=== PATIENT | female | born 1990 | race Caucasian/White ===

== ENCOUNTER 2023-06-29 05:40 | Inpatient (IN) ==
--- NOTE | 2023-06-22 09:16 | Anesthesiology Consultation ---
Date of Service June 22, 2023 Assessment & Plan (1) Encounter for pre-operative examination: Infectious disease screening: Per assessment on 06/22/23: No known infectious disease contacts or current infectious disease symptoms. No noted recent Covid positive test result. Chart Review Chart Review: ice rink attendant initiated History Surgery Operation Date: 06/29/23 07:30 Proposed Procedures p Section in LD (Delivery of Baby through Abdominal Incision) - Vernell Hope MD, FACOG s With Bilateral Tubal Ligation - Vernell Hope MD, FACOG Height/Weight Height: 5 ft 7 in Weight: 119.748 kg Allergies Allergy/AdvReac Type Severity Reaction Status Date / Time amoxicillin Allergy Mild Rash Verified 06/22/23 08:39 morphine Allergy Mild rash Verified 06/22/23 08:39 Influenza Virus Vaccines AdvReac Mild Gastrointestinal Verified 06/22/23 08:39 Upset Medications Home Medications Medication Instructions Recorded Confirmed Last Taken prenat.vits,gerry,[id number] 1 tab PO QPM 11/15/22 06/22/23 Unknown acetone (urine) test (Ketone Urine #50 ea 02/16/23 06/21/23 Unknown Test strips) blood sugar diagnostic (OneTouch #150 ea 02/16/23 06/21/23 Unknown Verio test strips) blood-glucose meter (OneTouch #1 ea 02/16/23 06/22/23 Unknown Verio Reflect Meter) lancets 33 gauge (OneTouch Delica #150 ea 02/16/23 06/22/23 Unknown Plus Lancet) pen needle, diabetic 32 gauge x #50 ea 03/30/23 06/22/23 Unknown /32" (BD Ultra-Fine Evelyn Pen Needle) hydrocortisone 2.5 % topical cream 1 applic NC BID PRN hemorrhoids 05/24/23 06/22/23 Unknown with perineal applicator #30 grams (Anusol-HC) aspirin 81 mg capsule 81 mg PO QAM 06/22/23 06/22/23 Unknown insulin NPH isoph U-100 human 100 16 unit subcut QPM 06/22/23 06/22/23 Unknown unit/mL (3 mL) subcutaneous pen (Humulin N NPH U-100 Insulin KwikPen) magnesium carb,citrate,oxide 300 mg PO QPM 06/22/23 06/22/23 Unknown (Magnesium Complex) Past Medical History Medical History Asthma exercise-induced at age 12, no inhaler since age 18 Constipation Depression with anxiety History of ovarian cyst History of pre-eclampsia reason for aspirin daily per patient Insulin controlled gestational diabetes mellitus (GDM) during Past Family History Family History Mother Breast cancer, Onset Age: 43 did not complete genetic testing Family history of reaction to anesthesia nausea/vomiting and difficulty waking Grandfather (Maternal) Colorectal cancer, Onset Age: 71 Grandmother (Maternal) Diabetes Denies family history of Ovarian cancer Past Surgical History Surgical History H/O hand surgery left tendon repair to pinky/ring finger History of tooth extraction History of wisdom tooth extraction Nausea and vomiting after administration of anesthetic agent S/P section S/P dilation and curettage x2 Social History Smoking Status: Never smoker Do You Dip or Chew Tobacco: No Hx Alcohol Use: No Hx Substance Use: No substance use type: does not use
--- NOTE | 2023-06-28 09:52 | History & Physical Report ---
Date of Service June 28, 2023 Assessment & Plan (1) 39 weeks gestation of : (2) Insulin controlled gestational diabetes mellitus (GDM) during : (3) Previous delivery affecting , antepartum: (4) Need for MMR vaccine: Plan admit in am for planned repeat c/s and tubal, with planned distal salpingectomies after discussion with pt of her options. Risks, complications and alternatives reviewed. Risks, alternatives and complications of procedure reviewed with patient and include but are not limited to injury to and maternal structures bleeding, infection, anesthesia, injury to bowel, bladder, vessels, nerves, ureters, delayed complication, failure of tubal ligation procedure with resultant , ectopic which can be medical emergency and regret for doing the tubal ligation. Patient desires to proceed and consent signed. She is aware of preop and postop instructions and course. Plan to take 1/2 nph dose at bedtime tonight and be npo after midnight. Of note can stop asa now. Also has taken cephalosporins in past without issue so plan Kefzol OCTOR tomorrow. History of Present Illness Chief Complaint: planned repeat c/s and desires tubal Primary Care Provider: Byron Sanchez MD 32yo at 39+wks ega presents to L&D in am tomorrow for planned repeat c/s and desires sterilization. Today pt denies rom or vb or ctx. Feels fm but baby is slowing. She had normal reactive nst today. She is taking 16u NPH at bedtime to control bsgs. Her last efw of baby was at 36wks and was 71%. PNC c/b 1. obesity 2. gdm on insulin 3. mmr equiv, plan mmr pp 4. prior preg c/b preeclampsia, has been taking baby asa 5. prior c/s, desires repeat c/s and tubal PNL rhpos, r equiv, gbs neg. OBH: c/s at term, preeclampsia GYNH: nl paps, no stds. Allergies Allergy/AdvReac Type Severity Reaction Status Date / Time amoxicillin Allergy Mild Rash Verified 06/28/23 08:19 morphine Allergy Mild rash Verified 06/28/23 08:19 Influenza Virus Vaccines AdvReac Mild Gastrointestinal Verified 06/28/23 08:19 Upset Home Medications Medication Instructions Recorded Confirmed Type prenat.vits,gerry,[id number] 1 tab PO QPM 11/15/22 06/28/23 History acetone (urine) test (Ketone Urine #50 ea 02/16/23 06/28/23 Rx Test strips) blood sugar diagnostic (OneTouch #150 ea 02/16/23 06/28/23 Rx Verio test strips) blood-glucose meter (OneTouch #1 ea 02/16/23 06/28/23 Rx Verio Reflect Meter) lancets 33 gauge (OneTouch Delica #150 ea 02/16/23 06/28/23 Rx Plus Lancet) pen needle, diabetic 32 gauge x #50 ea 03/30/23 06/28/23 Rx 5/32" (BD Ultra-Fine Evelyn Pen Needle) hydrocortisone 2.5 % topical cream 1 applic DE BID PRN hemorrhoids 05/24/23 06/28/23 Rx with perineal applicator #30 grams (Anusol-HC) aspirin 81 mg capsule 81 mg PO QAM 06/22/23 06/28/23 History insulin NPH isoph U-100 human 100 16 unit subcut QPM 06/22/23 06/28/23 History unit/mL (3 mL) subcutaneous pen (Humulin N NPH U-100 Insulin KwikPen) magnesium carb,citrate,oxide 300 mg PO QPM 06/22/23 06/28/23 History (Magnesium Complex) Patient History Medical History Asthma exercise-induced at age 12, no inhaler since age 18 Constipation Depression with anxiety History of ovarian cyst History of pre-eclampsia reason for aspirin daily per patient Insulin controlled gestational diabetes mellitus (GDM) during Surgical History H/O hand surgery left tendon repair to pinky/ring finger History of tooth extraction History of wisdom tooth extraction Nausea and vomiting after administration of anesthetic agent S/P section S/P dilation and curettage x2 Family History Mother Breast cancer, Onset Age: 43 did not complete genetic testing Family history of reaction to anesthesia nausea/vomiting and difficulty waking Grandfather (Maternal) Colorectal cancer, Onset Age: 71 Grandmother (Maternal) Diabetes Denies family history of Ovarian cancer Social History (Updated 11/15/22 @ 09:59 by Nelia Cope) Smoking Status: Never smoker Second Hand Exposure: Yes (father smoked growing up); Do You Dip or Chew Tobacco: No; Hx Alcohol Use: No Hx Substance Use: No Preferred Language: French Communication Ability: Effective Voice Over Artist Required: No Beliefs That Will Affect Care: None marital status: marital status details: Ambrose Landry (30) [phone] Current Living Situation: Spouse and Family Current Living Situation Comment: lives with spouse, daughter current occupational status: employed 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 Feels Safe at Home: Yes Assistive Devices: Glasses Review of Systems as per Subjective / HPI Physical Exam Constitutional: WD/WN, vitals as above Respiratory: normal respiratory effort, lungs clear to auscultation Cardiovascular: Rate/Rhythm: regular rate and regular rhythm Gastrointestinal (Abdomen): soft gravid nt nst reactive Musculoskeletal: tr edema Neurologic: grossly normal Psychiatric: A+Ox3, euthymic affect Coding Level of Care Code None Diagnoses 39 weeks gestation of Z3A.39 Insulin controlled gestational diabetes mellitus (GDM) during O24.414 Previous delivery affecting , antepartum O34.219 Need for MMR vaccine Z23
[2023-06-29] MEDS ORDERED: ceFAZolin 3,000 MG in DEXTROSE 5% 50 ML IV SCH (06:00)
[2023-06-29] MEDS ORDERED: CITRIC ACID/SODIUM CITRATE 15 ML UDC PO SCH (06:00)
[2023-06-29] MEDS ORDERED: LACTATED RINGER'S 1,000 ML IV SCH ×2 (06:00→10:23)
[2023-06-29 06:39] LABS: Basophils # (auto) 0.05 K/uL (0.00-0.20); Basophils % (auto) 0.4 %; Eosinophils # (auto) 0.23 K/uL (0.00-0.50); Hematocrit (blood only) 38.4 % (37.0-47.0); Hemoglobin 12.8 g/dl (12.0-16.0); Immature Granulocytes # (auto) 0.07 K/uL (0.01-0.20); Immature Granulocytes % (auto) 0.6 %; Lymphocytes # (auto) 1.84 K/uL (1.20-3.40); Lymphocytes % (auto) 16.1 %; Mean Corpuscular Hemoglobin 26.8 pg (25.0-34.0); Mean Corpuscular Hgb Conc 33.3 g/dL (32.0-36.0); Mean Corpuscular Volume 80.5 fL (80.0-100.0); Mean Platelet Volume 10.9 fL (9.4-12.4); Monocytes # (auto) 0.65 K/uL (0.11-0.59); Monocytes % (auto) 5.7 %; Neutrophils # (auto) 8.59 K/uL (1.40-6.50); Neutrophils % (auto) 75.2 %; Platelet Count 189 K/uL (130-400); RDW Coefficient of Variation 14.4 % (11.5-14.5); RDW Standard Deviation 41.5 fL (36.4-46.3); Red Blood Count 4.77 M/uL (4.20-5.40); White Blood Count 11.43 K/ul (4.8-10.8)
[2023-06-29] MEDS ORDERED: PHENYLEPHRINE HCL 10 MG/ML VIAL ONE (07:01)
[2023-06-29] MEDS ORDERED: OXYTOCIN 10 UNITS/ML VIAL ONE (07:01)
[2023-06-29] MEDS ORDERED: MoRPHine SULFATE PF 1 MG/ML 10 ML AMP/VIAL ONE (07:01)
[2023-06-29] MEDS ORDERED: fentaNYL citrate PF 100 MCG/2 ML VIAL ONE (07:02)
[2023-06-29] MEDS ORDERED: NALOXONE HCL 0.4 MG/1 ML VIAL/CARP IV PRN (07:17)
[2023-06-29] MEDS ORDERED: MoRPHine SULFATE PF 1 MG/ML 10 ML AMP/VIAL INT SPINAL ONE (07:17)
[2023-06-29] MEDS ORDERED: HYDROmorphone INJ 0.5 MG/0.5 ML SYR IV PRN (07:17)
[2023-06-29] MEDS ORDERED: ePHEDrine sulfate 50 MG/ML AMP IV PRN (07:17)
[2023-06-29] MEDS ORDERED: NALOXONE HCL 1 MG in SODIUM CHLORIDE 0.9% 1,000 ML IV PRN (07:17)
[2023-06-29] MEDS ORDERED: NALOXONE HCL 0.08 MG in SYRINGE 1.8 ML IV PRN (07:17)
[2023-06-29] MEDS ORDERED: LACTATED RINGER'S 500 ML IV PRN (07:17)
[2023-06-29] MEDS ORDERED: NALBUPHINE HCL 5 MG in SYRINGE 0 ML IV PRN (07:17)
[2023-06-29] MEDS ORDERED: ONDANSETRON INJ 2 MG/ML 2 ML VIAL IV PRN (07:17)
[2023-06-29] MEDS ORDERED: diphenhydrAMINE 50 MG/ML VIAL IV PRN (07:17)
--- NOTE | 2023-06-29 07:22 | History & Physical Bridge Note ---
Date of Service June 29, 2023 History & Physical Bridge Note I have examined the patient, reviewed the History & Physical and in the interval since the performance of the History & Physical I have noted the following changes of clinical significance: no changes noted
[2023-06-29] MEDS ORDERED: SODIUM CHLORIDE 0.9% 1,000 ML IV SCH (07:30)
[2023-06-29] MEDS ORDERED: DC INTRASPINAL MORPHINE SCH (07:30)
[2023-06-29] MEDS ORDERED: NO NARCOTICS OR SEDATIVES SCH (07:30)
--- NOTE | 2023-06-29 09:35 | Operative Report ---
PG Post Operative Report Pre & Post Diagnosis Operation Date: 06/29/23 07:30 <No data on this case meets the specified criteria> 1. 39+wks ega 2. Prior section, desires repeat section 3. Desires sterilization 4. GDM on insulin. I identified the patient and participated in the time-out.: Yes Procedure Operation Date: 06/29/23 07:30 <No data on this case meets the specified criteria> Repeat Low Transverse Section Bilateral Tubal Ligation via distal salpingectomies Surgeon Vernell Hope MD, FACOG Pump And Still Operator RN Estimated Blood Loss 600 Findings Consistent with Post-Op Diagnosis (viable male , apgars pending. normal bilateral ovaries and fallopian tubes. ) Fluids 700 Specimens bilateral fallopian tubes. cord blood. Drains joseph Anesthesia Type Spinal Complications none Disposition Accompanied Patient To Recovery: No Disposition: L&D Indications 32yo at 39+wks for planned repeat c/s and desires tubal ligation. Description of Procedure The patient was taken to the operating room and identified. After adequate anesthesia was obtained, she was placed in the supine position with a leftward tilt on the operating table and prepped and draped in the usual sterile fashion. A joseph catheter had already been placed. The knife was used to create a Pfannensteil skin incision that was carried down to the underlying layer of fascia. The fascia was nicked in the midline and this opening was extended laterally using Rosas scissors. Cachorro clamps were placed on the superior and inferior aspect of the fascial incision tenting it upward and the underlying rectus muscles were dissected off the overlying fascia both sharply and bluntly using Rosas scissors. The rectus muscles were bluntly in the midline. The peritoneal cavity was bluntly entered into. This opening was stretched. The bladder blade was placed. The vesicouterine peritoneum was elevated and opened up into and the bladder flap was created digitally and bladder blade was replaced. The knife was used to create a hysterotomy and this opening was stretched. The operators hand was placed through the hysterotomy and the bladder blade was removed. The head was elevated and flexed and with fundal pressure the head was delivered. The shoulders and body were rapidly delivered. The cord was clamped and cut and the 's mouth and nares were bulb suction. The was handed off to the awaiting pediatricians. Cord blood was obtained. The placenta was manually expressed. The uterus was exteriorized and cleared of all clots and debris. Dilute IV Pitocin was begun. The uterine tone was improving. The hysterotomy was closed in a running interlocking fashion using 0 Vicryl followed by a second figure of eight suture at the left angle for excellent hemostasis. Attention was then turned to bilateral fallopian tubes, each carried out to fimbriated ends, elevated with gaurav clamps and transected from fimbriae to cornua using the ligasure . The hysterotomy was hemostatic. The pelvis was suctioned. The uterus was returned to the abdomen. The gutters were cleared of all clots and debris. The hysterotomy was reinspected and noted to be hemostatic as were the tubal sites. The fascia was then closed in running fashion using 0 Vicryl. The subcutaneous fat was copiously irrigated and reapproximated using 2-0 chromic. The skin was closed in a subcuticular fashion using 4-0 monocryl. At this point the procedure was terminated. The patient was transferred to the recovery room in stable condition. All sponge, lap and needle counts are correct x2. I attest to the content of the Intraoperative Record and any orders documented therein. Any exceptions are noted below. OB Procedure Charges 02595 [id number] Add on Tubal for C/S
[2023-06-29] MEDS ORDERED: MEASLES, MUMPS & RUBELLA VIRUS VACCINE (MMR) VIAL SQ ONE (10:09)
[2023-06-29] MEDS ORDERED: MAGNESIUM HYDROXIDE SUSP 30 ML UDC PO PRN (10:23)
[2023-06-29] MEDS ORDERED: DIPHTHER/TETAN/PERTUS Vaccine (Tdap, Adol/Adult) 0.5mL IM ONE (10:23)
[2023-06-29] MEDS ORDERED: HYDROCORTISONE ACETATE 25 MG SUPP PR PRN (10:23)
[2023-06-29] MEDS ORDERED: SENNA 8.6 MG TAB PO PRN (10:23)
[2023-06-29] MEDS ORDERED: IBUPROFEN 600 MG TAB PO PRN (10:23)
[2023-06-29] MEDS ORDERED: BENZOCAINE 20% SPRY 85 APPLN/85 GM CAN EXT PRN (10:23)
--- NOTE | 2023-06-29 10:41 | Anesthesiology Progress Note ---
Date of Service June 29, 2023 Anesthesia Post Procedure Vital Signs Vital Signs: Temp Pulse Resp BP Pulse Ox 06/29/23 10:38 81 98 06/29/23 10:33 78 95 06/29/23 10:31 79 96/53 L 06/29/23 10:28 74 96 06/29/23 10:23 72 97 06/29/23 10:21 20 06/29/23 10:21 77 105/53 L 06/29/23 10:18 83 97 06/29/23 10:13 82 96 06/29/23 10:11 18 06/29/23 10:11 70 113/56 L 06/29/23 10:08 73 99 06/29/23 10:03 84 99 06/29/23 10:01 16 06/29/23 10:01 75 114/55 L 06/29/23 09:58 79 99 06/29/23 09:53 73 100 06/29/23 09:51 16 06/29/23 09:51 73 105/59 L 06/29/23 09:48 72 98 06/29/23 09:43 74 99 06/29/23 09:40 36.8 C 20 06/29/23 09:39 71 105/58 L 06/29/23 09:38 72 98 06/29/23 07:02 86 121/57 L 06/29/23 07:00 20 06/29/23 07:00 20 06/29/23 06:05 102 H 112/60 06/29/23 06:03 36.6 C 18 Transfer of Care Handoff Completed per policy Notes Mental Status: alert / awake / arousable and participated in evaluation Patient Amnestic to Procedure: Yes Nausea / Vomiting: adequately controlled Pain: adequately controlled Airway Patency, RR, SpO2: stable & adequate BP & HR: stable & adequate Hydration State: stable & adequate Neuraxial Anesthesia: was administered and sensory block is resolving Anesthetic Complications: no major complications apparent and Pt Satisfied with anesthetic care
[2023-06-29] MEDS: KETOROLAC 30 MG/ML VIAL IV PRN ×3 (11:06→22:50)
[2023-06-29] MEDS: OXYTOCIN 20 UNITS/LR 1,002 ML IV SCH ×2 (11:06→19:38)
[2023-06-29] MEDS: SIMETHICONE 80 MG CHEW PO SCH ×3 (16:13→19:41)
[2023-06-29] MEDS ORDERED: DOCUSATE SODIUM 100 MG CAP PO ONE (19:37)
[2023-06-29] MEDS: MAGNESIUM OXIDE 400 MG TAB PO SCH (19:41)
[2023-06-29] MEDS: DOCUSATE SODIUM 100 MG CAP PO SCH (19:41)
[2023-06-30] MEDS ORDERED: ONDANSETRON INJ 2 MG/ML 2 ML VIAL IV PRN (01:18)
[2023-06-30] MEDS ORDERED: diphenhydrAMINE Capsule 25 MG CAP PO PRN (01:18)
[2023-06-30] MEDS ORDERED: PROMETHAZINE HCL 25 MG in SODIUM CHLORIDE 0.9% 50 ML IV PRN (01:18)
[2023-06-30] MEDS ORDERED: diphenhydrAMINE 50 MG/ML VIAL IV PRN (01:18)
[2023-06-30] MEDS ORDERED: KETOROLAC 30 MG/ML VIAL IV PRN (01:18)
[2023-06-30] MEDS ORDERED: oxyCODONE/ACETAMINOPHEN 5mg/325mg TAB PO PRN (01:18)
[2023-06-30] MEDS ORDERED: ZOLPIDEM TARTRATE 5 MG TAB PO PRN (01:18)
--- NOTE | 2023-06-30 06:10 | Obstetrical Progress Note ---
Date of Service <Marthaanup Fleming DO - Last Filed: 06/30/23 06:11> June 30, 2023 Assessment & Plan <Martha Fleming DO - Last Filed: 06/30/23 06:11> (1) care following delivery: (2) Insulin controlled gestational diabetes mellitus (GDM) during : Plan Feels well today. Eating well, voiding well, ambulating well. Pain well controlled with prn pain meds. Routine care; OOB, ambulation, diet progression as tolerated. Anticipate discharge 48-72 hours after delivery, hopefully tomorrow am. After discharge will have 6 week follow-up with Dr. Hope. <Sandra Gaffney MD - Last Filed: 06/30/23 07:44> (1) care following delivery: (2) Insulin controlled gestational diabetes mellitus (GDM) during : Subjective <Martha Fleming DO - Last Filed: 06/30/23 06:11> Pt is a 32 y/o female who is POD#1 following repeat delivery at 39 weeks. complicated by GDM, obesity. Pt states that she is feeling fine this morning. No questions or complaints at this time. She states that she has been up since the delivery, has tolerated oral intake without issue, and has been voiding and passing gas. She is breast feeding and it has been going well so far. She does note that she is a bit more tender today than yesterday but pain is still controlled with prn meds. She is hoping to go home tomorrow. Lochia is persistent but improved. Constitutional: no fever, no chills or no sweats Respiratory: no dyspnea Cardiovascular: no chest pain or no palpitations Breast: no breast pain Genitourinary (female): no dysuria Neurologic: no headache(s) no changes in vision, no headaches Physical Exam <Martha Fleming DO - Last Filed: 06/30/23 06:11> General: Alert, oriented. No acute distress. Cardiac: Regular rate and rhythm, no murmurs, rubs, or gallops. Respiratory: Clear to auscultation bilaterally, no wheezes/rales/rhonchi. No increased work of breathing. Symmetrical chest rise. No respiratory distress. Abdomen: Soft, nontender, nondistended. Bowel sounds present. Uterus: Uterine fundus firm, palpable below the umbilicus. Surgical scar clean and healing well. No drainage. Lower extremities: No lower extremity edema or swelling. No deep calf pain. Results & Data <Martha Fleming DO - Last Filed: 06/30/23 06:11> Vital Signs (Past 12 Hours) Vital Signs Temp Pulse Resp BP Pulse Ox O2 Del Method 06/30/23 03:13 36.6 C 78 18 110/59 L 96 Room Air 06/30/23 01:00 18 95 06/30/23 00:00 18 95 06/29/23 23:40 18 95 06/29/23 22:55 36.5 C 73 20 114/64 95 Room Air 06/29/23 22:00 18 95 06/29/23 21:00 18 96 06/29/23 20:00 18 95 06/29/23 19:25 18 95 06/29/23 18:50 36.7 C 78 18 120/60 95 Room Air Supervising Physician <Sandra Gaffney MD - Last Filed: 06/30/23 07:44> Co-Signing Physician Notes Resident Physician Supervision Note: I interviewed and examined the patient. Discussed with Dr. Fleming and agree with findings and plan as documented in the note. Any exceptions or clarifications are listed here: POD1 s/p rLTCS, doing well. VSS, exam benign and wnl. Incision c/d/i. Trying to avoid narcotics if possible, will have scheduled ibuprofen/tylenol and oxy prn. Continue routine pp care Documented By: Sandra Gaffney MD Resident Activity Tracking <Martha Fleming DO - Last Filed: 06/30/23 06:11> Resident Involvement: Resident Care Provided Care Provided: OB Delivery
[2023-06-30 06:32] LABS: Basophils # (auto) 0.05 K/uL (0.00-0.20); Basophils % (auto) 0.5 %; Eosinophils # (auto) 0.36 K/uL (0.00-0.50); Eosinophils % (auto) 3.3 %; Hematocrit (blood only) 37.8 % (37.0-47.0); Hemoglobin 11.9 g/dl (12.0-16.0); Immature Granulocytes # (auto) 0.05 K/uL (0.01-0.20); Immature Granulocytes % (auto) 0.5 %; Lymphocytes # (auto) 1.69 K/uL (1.20-3.40); Lymphocytes % (auto) 15.6 %; Mean Corpuscular Hemoglobin 26.5 pg (25.0-34.0); Mean Corpuscular Hgb Conc 31.5 g/dL (32.0-36.0); Mean Corpuscular Volume 84.2 fL (80.0-100.0); Monocytes # (auto) 0.68 K/uL (0.11-0.59); Monocytes % (auto) 6.3 %; Neutrophils # (auto) 7.97 K/uL (1.40-6.50); Neutrophils % (auto) 73.8 %; Platelet Count 178 K/uL (130-400); RDW Coefficient of Variation 14.5 % (11.5-14.5); RDW Standard Deviation 44.3 fL (36.4-46.3); Red Blood Count 4.49 M/uL (4.20-5.40)
[2023-06-30] MEDS ORDERED: oxyCODONE HCL IR 5 MG TAB (IMMEDIATE RELEASE) PO PRN ×3 (07:11→07:23)
[2023-06-30] MEDS: PRENATAL VITAMIN 1 TAB PO SCH (08:41)
[2023-06-30] MEDS: DOCUSATE SODIUM 100 MG CAP PO SCH ×2 (08:41→20:15)
[2023-06-30] MEDS: FERROUS SULFATE 325 MG TAB PO SCH (08:41)
[2023-06-30] MEDS: SIMETHICONE 80 MG CHEW PO SCH ×4 (08:41→20:17)
[2023-06-30] MEDS: ACETAMINOPHEN 500 MG TAB PO SCH ×2 (08:42→17:10)
[2023-06-30] MEDS: IBUPROFEN 600 MG TAB PO SCH ×3 (12:00→22:06)
[2023-06-30] MEDS: MAGNESIUM OXIDE 400 MG TAB PO SCH (20:58)
[2023-06-30] MEDS ORDERED: ACETAMINOPHEN 325 MG TAB PO PRN (21:49)
[2023-07-01] MEDS: oxyCODONE/ACETAMINOPHEN 5mg/325mg TAB PO PRN ×3 (00:26→09:16)
[2023-07-01] MEDS: IBUPROFEN 600 MG TAB PO PRN ×2 (00:26→05:44)
[2023-07-01 06:31] LABS: Hematocrit (blood only) 34.8 % (37.0-47.0); Hemoglobin 11.2 g/dl (12.0-16.0)
--- NOTE | 2023-07-01 08:07 | Obstetrical Progress Note ---
Date of Service July 01, 2023 Assessment & Plan (1) care following delivery: (2) Need for MMR vaccine: Plan stable, doing well. ready for dc home, instructions reviewed. f/u 6 wk pp check. percocet helping for pain and will send script to pharm. checked on papdmp and no issues. Subjective Ambulation: ambulating normally Voiding: no voiding problems Passing Gas:: Yes Diet Tolerance:: regular diet Lochia:: Small Feeding Type:: breast feeding milk not in yet. doing better with pain control. happy with percocet. Constitutional: + as per Subjective / HPI Physical Exam Constitutional WD/WN, vitals as above Respiratory normal respiratory effort, lungs clear to auscultation Cardiovascular Rate/Rhythm: regular rate and regular rhythm Gastrointestinal (Abdomen) Inspection/Auscultation: abdomen normal to inspection and + abdominal surgical incision (c/d/i) Percussion/Palpation: abdomen soft Fundus firm 2cm down Musculoskeletal nt calves tr edema Neurologic grossly normal Psychiatric A+Ox3, euthymic affect Results & Data Vital Signs (Past 12 Hours) Vital Signs Temp Pulse Resp BP Pulse Ox O2 Del Method 07/01/23 00:15 97.9 F 74 18 121/65 Room Air 06/30/23 20:30 97.7 F 70 18 104/55 L 97 Room Air
[2023-07-01] MEDS: FERROUS SULFATE 325 MG TAB PO SCH (09:16)
[2023-07-01] MEDS: IBUPROFEN 600 MG TAB PO SCH (09:16)
[2023-07-01] MEDS: SIMETHICONE 80 MG CHEW PO SCH (09:16)
[2023-07-01] MEDS: DOCUSATE SODIUM 100 MG CAP PO SCH (09:16)
[2023-07-01] MEDS: PRENATAL VITAMIN 1 TAB PO SCH (09:16)
--- NOTE | 2023-07-02 12:53 | Discharge Summary ---
Date of Service Date of admission: June 29, 2023 Date of discharge: 07/01/23 Admission HPI Per Admitting Provider 32yo at 39+wks radha presents to L&D in am tomorrow for planned repeat c/s and desires sterilization. Today pt denies rom or vb or ctx. Feels fm but baby is slowing. She had normal reactive nst today. She is taking 16u NPH at bedtime to control bsgs. Her last efw of baby was at 36wks and was 71%. PNC c/b 1. obesity 2. gdm on insulin 3. mmr equiv, plan mmr pp 4. prior preg c/b preeclampsia, has been taking baby asa 5. prior c/s, desires repeat c/s and tubal PNL rhpos, r equiv, gbs neg. OBH: c/s at term, preeclampsia GYNH: nl paps, no stds. Discharge Data Consultations 06/29/23 05:42 Consult Anesthesiology Stat Procedures Performed Operation Date: 06/29/23 07:30 Actual Procedures Repeat Low Transverse Section Bilateral Tubal Ligation via distal salpingectomies Hospital Course (1) 39 weeks gestation of : (2) Previous delivery affecting , antepartum: Plan The patient underwent the above stated procedure without incident and her postoperative course and recovery was uncomplicated. On her postoperative day #2 she was tolerating a regular diet, voiding spontaneously, ambulating without problem and was using oral meds for adequate pain control. Her postoperative hemoglobin was 11.2. She was given written and verbal discharge instructions and told to followup in office at 6wks. She was given appropriate pain medicine prescriptions. Coding Level of Care Code None Diagnoses 39 weeks gestation of Z3A.39 Previous delivery affecting , antepartum O34.219
== END 2023-07-01 10:30 | disposition home or self-care (01) | DRG 785 ==
LOC: 4S1 05:40 → EDSTATUS 07:30 → 4E1 12:00
DX: O24.424 Gestational diabetes mellitus in childbirth, insulin controlled; Z3A.39 39 weeks gestation of pregnancy; Z30.2 Encounter for sterilization; Z37.0 Single live birth; O34.211 Maternal care for low transverse scar from previous cesarean delivery